=== PATIENT | female | born 1975 ===

== ENCOUNTER 2025-06-07 09:01 | Emergency (ER) | payer OTHER, SELFPAY ==
[2025-06-07 09:07] VITALS: BP 137/109; PULSE 92; RESP 16; TEMP 36.6; O2SAT 100
--- NOTE | 2025-06-07 09:10 | PC.NURSE ---
This RN offered to call care coordination for pt after pt answered yes to safety at home screening questions during initial assessment, pt declined stating she didn't need it
--- NOTE | 2025-06-07 09:48 | ED.GENADULT ---
HPI - General Adult General Chief complaint: Dental/Oral Stated complaint: TOOTH PAIN ?ABSCESS Time Seen by Provider: 06/07/25 09:10 History of Present Illness HPI narrative: Jennifer Mack is a 49 year female who presents today with complaints of having a right lower dental infection that she has felt the pain started about 3 weeks ago 4 days ago she says it lasted but now she is having continued pain she is worried that it is getting infected again. She denies any fevers or chills no systemic symptoms Related Data Allergies Allergy/AdvReac Type Severity Reaction Status Date / Time No Known Allergies Allergy Verified 06/07/25 09:02 Review of Systems Review of Systems: All systems reviewed & are unremarkable except as noted in HPI and below PMFSH Social History Social History Smoking status: Smoker, status unknown Exam Narrative: GENERAL: Well-appearing, well-nourished, and in no acute distress. HEAD: Normocephalic, atraumatic. EYES: PERRLA and EOMI. ENT: Nares clear, no rhinorrhea or epistaxis. Mucous membranes moist. Positive right lower dental decay more severe dental decay between teeth number 31 through 34 without a palpable abscess today. Oropharynx without tonsillar hypertrophy exudate or other lesions. NECK: Supple. No adenopathy or masses. No carotid bruits or JVD CHEST: Clear to auscultation. No respiratory distress. No wheezes rales or rhonchi HEART: Regular rate and rhythm. No murmur heard. Normal peripheral pulses. EXTREMITIES: Normal range of motion. No edema. SKIN: Warm, dry, no rash. NEURO: No focal deficits. Alert and oriented x3. PSYCH: Normal mood and affect. Course Vital Signs Vital signs: Vital Signs Temperature 36.6 C 06/07/25 09:07 Pulse Rate 92 06/07/25 09:07 Respiratory Rate 16 06/07/25 09:07 Blood Pressure 137/109 H 06/07/25 09:07 Pulse Oximetry 100 06/07/25 09:07 Oxygen Delivery Room Air 06/07/25 09:07 Temperature 36.6 C 06/07/25 09:07 Pulse Rate 92 06/07/25 09:07 Respiratory Rate 16 06/07/25 09:07 Blood Pressure 137/109 H 06/07/25 09:07 Pulse Oximetry 100 06/07/25 09:07 Oxygen Delivery Room Air 06/07/25 09:07 Medical Decision Making MDM Narrative Medical decision making narrative: Patient with worsening dental pain and dental decay. No palpable abscess. No systemic signs or symptoms. Antibiotics course provided. Follow-up instructions given for dental/oral surgery clinics. Patient was given return precautions and discharged home in stable condition. Pulse oximetry interpretation: not hypoxic. Disposition: Discharge to home in stable condition. Impression: Acute dental pain, likely due to dental caries. Medical Records Medical records reviewed: Yes I reviewed the external patient's medical records. Vital Signs Vital Signs: Vital Signs Temperature 36.6 C 06/07/25 09:07 Pulse Rate 92 06/07/25 09:07 Respiratory Rate 16 06/07/25 09:07 Blood Pressure 137/109 H 06/07/25 09:07 Pulse Oximetry 100 06/07/25 09:07 Oxygen Delivery Room Air 06/07/25 09:07 Temperature 36.6 C 06/07/25 09:07 Pulse Rate 92 06/07/25 09:07 Respiratory Rate 16 06/07/25 09:07 Blood Pressure 137/109 H 06/07/25 09:07 Pulse Oximetry 100 06/07/25 09:07 Oxygen Delivery Room Air 06/07/25 09:07 vitals reviewed Discharge Plan Discharge Clinical Impression: Dental caries, Dental abscess, Toothache Patient Disposition: Home Condition: Stable Instructions: Antibiotic Form Additional Instructions: Continue the antibiotics twice daily for 10 days he may continue to take naproxen twice daily for the pain we will also get or chills help with the pain from the pharmacy. Please follow-up with a dentist. If he develops any new or worsening symptoms otherwise return to the emergency department. Patient Language: Sinhala Prescriptions: New amoxicillin-pot clavulanate 875-125 mg tablet 1 tablet PO Q12H Qty: 20 0RF naproxen 500 mg tablet 500 mg PO BID PRN (Reason: pain) Qty: 20 0RF Follow-up/Referrals: UNKNOWN,DOCTOR [Primary Care Provider] Stand Alone Forms: Work/School Release IP Time of Disposition: 09:54
[2025-06-07] MEDS: LIDOCAINE 2% VISC SOLN 15 ML UDC PO (10:04)
[2025-06-07] MEDS: IBUPROFEN 600 MG TABLET PO (10:05)
== END 2025-06-07 10:08 | disposition home or self-care (01) ==
PROVIDERS: Emergency Provider Nurse Practitioner Family
DX: K04.7 Periapical abscess without sinus (principal); K02.9 Dental caries, unspecified
CPT/HCPCS: 99283; A9270